=== PATIENT | male | born 1970 | race Caucasian/White ===

== ENCOUNTER 2018-08-08 16:00 | Outpatient (CLI) | payer OTHER ==
[2013-03-06 17:01] VITALS: BP 126/78
== END 2018-08-08 16:03 ==
LOC: LABRHC 16:00
PROVIDERS: ATTEND Family Medicine
DX: E79.0 Hyperuricemia without signs of inflammatory arthritis and tophaceous disease (principal)
CPT/HCPCS: 36415; 84550

== ENCOUNTER 2019-05-17 15:07 | Emergency (ER) | payer OTHER ==
--- NOTE | 2019-05-17 15:15 | ED Physician Documentation ---
Shoulder Injury/Pain - HISTORIAN Historian: patient - HPI Stated Complaint: right shoulder/elbow pain with movement Chief Complaint: Shoulder Injury/ Pain Onset: just prior to arrival Where: home Severity: moderate Context: fall Associated Symptoms: weakness Further Comments: yes (he states he fell after stepping on a unsteady surface falling back while still holding on to the rail and now he is able to lift his arm and raise with use of other hand but physically not able to do this alone with just arm. Elbow did take a direct hit with fall. He did also hit his head but states he had no other issues and no LOC He has not had anything for pain) - ROS CONST: no problems - PAST HX Past History: none Immunizations: UTD Allergies/Adverse Reactions: Allergies Allergy/AdvReac Type Severity Reaction Status Date / Time No Known Allergies Allergy Verified 05/17/19 15:22 Home Medications: Ambulatory Orders Medication Instructions Recorded NK 03/06/13 - SOCIAL HX Smoking History: non-smoker Alcohol Use: none Drug Use: none - FAMILY HX Family History: none - VITAL SIGNS Vital Signs: Vital Signs Temp Pulse Resp BP Pulse Ox 97.1 F L 75 20 162/126 99 05/17/19 15:16 05/17/19 15:16 05/17/19 15:16 05/17/19 15:16 05/17/19 15:16 - REVIEWED ASSESSMENT Nursing Assessment Reviewed: Yes Vitals Reviewed: Yes Progress - Progress Progress: 1600: Discussed results. Given sling for comfort. Encouraged rest. He needs to follow up with PCP in 3 days for possible MRI. HE is aware. Denies need for pain medication DG ED Results Lab/Radiology - Orders Orders: ED Orders Category Date Time Status ELBOW 3 VIEWS [RAD] Stat Exams 05/17/19 Completed SHOULDER 2 VIEWS OR MORE [RAD] Stat Exams 05/17/19 Completed Shoulder Injury Physical Exam - Physical Exam General Appearance: no acute distress Shoulder: no acute distress, no dislocation, limited ROM, limited internal rotation, limited external rotation. No: soft-tissue tenderness, clavicular deformity Upper Extremity: bony tenderness (elbow ). No: soft-tissue tenderness Neuro: sensation nml Vascular: no vascular compromise Skin: warm/dry, normal color Head/ENT: nml inspection, pharynx nml Respiratory: chest non-tender, heart sounds nml CVS: reg rate & rhythm Abdomen: soft, normal bowel sounds, no distension Discharge Clincal Impression: Right shoulder pain Qualifiers: Chronicity: acute Qualified Code(s): M25.511 - Pain in right shoulder Referrals: Brissa Jimenez MD [Primary Care Provider] - 2 Days Comments: 1. OTC meds as directed as needed for pain 2. Immobilize for comfort 3. Follow up with PCP for possible MRI 4. Return to ER for any increased concerns Condition: Stable Disposition: 01 HOME, SELF-CARE Decision to Admit: NO Date of Decison to Admit: 05/17/19 Decision Time: 16:02
--- NOTE | 2019-05-17 15:52 | Diagnostic Imaging Report ---
PATIENT MR#: [id number] PATIENT PATIENT NAME: MIRI PEPE DATE OF : 1970 REFERRING PHYSICIAN: Cathy Sinha EXAM DATE: 05/17/2019 ACCESSION NUMBER: [id number] EXAM DESCRIPTION: SHOULDER 2 VIEWS OR MORE Exam: Right scapula 2 views Indication: ORDER STATES RT SHOULDER AND ELBOW PAIN AFTER FALL. (Hx) / Note time : 05/17/2019 3:35:31 PM User : Neftaly faith ORDER STATES RT SHOULDER AND ELBOW PAIN AFTER FALL. (DICOM Hx) (DI COM Hx) Findings: No acute fracture, subluxation, dislocation or other osseous abnormality is identified. If clinical symptoms persist follow up examination may be warranted to exclude an occult process. Impression: No acute osseous abnormality. Read by: Dr. Vik Wilburn Transcribed by: Transcribed Date: Electronically signed by: Dr. Vik Wilburn Date signed: 05/17/2019 3:51:33 PM
--- NOTE | 2019-05-17 15:52 | Diagnostic Imaging Report ---
PATIENT MR#: [id number] PATIENT PATIENT NAME: MIRI PEPE DATE OF : 1970 REFERRING PHYSICIAN: Cathy Sinha EXAM DATE: 05/17/2019 ACCESSION NUMBER: [id number] EXAM DESCRIPTION: ELBOW 3 VIEWS Exam: Right elbow 3 views Indication: ORDER STATES RT SHOULDER AND ELBOW PAIN AFTER FALL. (Hx) / Note time : 05/17/2019 3:35:16 PM User : Neftaly faith ORDER STATES RT SHOULDER AND ELBOW PAIN AFTER FALL. (DICOM Hx) (DI COM Hx) Findings: No acute fracture, subluxation, dislocation or other osseous abnormality is identified. If clinical symptoms persist follow up examination may be warranted to exclude an occult process. Impression: No acute osseous abnormality. Read by: Dr. Vik Wilburn Transcribed by: Transcribed Date: Electronically signed by: Dr. Vik Wilburn Date signed: 05/17/2019 3:51:34 PM
[2019-05-17 16:24] VITALS: BP 158/100
== END 2019-05-17 16:23 | disposition home or self-care (01) ==
LOC: ED 15:07
DX: M25.511 Pain in right shoulder (principal)
CPT/HCPCS: 73030; 73080; 99282